=== PATIENT | male | born 1985 | race Caucasian/White ===

== ENCOUNTER 2017-02-09 20:40 | Emergency (ER) | payer OTHER ==
[2017-02-09] MEDS ORDERED: methylPREDNISolone 125 MG* 2 ML VIAL IV ONE (20:50)
[2017-02-09] MEDS ORDERED: Famotidine IV* 10 MG/ML 2 ML (20 mg) IV SLOW PU ONE (20:50)
[2017-02-09 21:09] VITALS: BP 137/77
--- NOTE | 2017-02-09 21:09 | UC ---
Allergic Reaction HPI - HPI Summary HPI Summary: Pt presents to urgent care after being stung by a wasp. Pt state he rapidly developed itching. Pt took 75mg of Benadryl and drove self to ED. Pt states hive increased, felt like he was having difficulty breathing and his throat was tight. Pt also reports mild lightheadedness. Pt without previous allergic reaction. Pt's medications reviewed at this visit - History of Current Complaint Chief Complaint: UCAllergicReaction Stated Complaint: BEE STING,HIVES,DIZZY,SOB Time Seen by Provider: 02/09/17 20:42 Hx Obtained From: Patient Onset/Duration: Sudden Onset Severity Initially: Moderate Severity Currently: Moderate Location: Diffuse Character: Swelling, Pruritus, Hives Aggrevating Factor(s): Nothing Alleviating Factor(s): Antihistamines Associated Signs And Symptoms: Positive: Difficulty Breathing, Hoarseness, Lightheadedness, Nausea - Related Hx Possible Reaction To: Insect - Allergies/Home Medications Allergies/Adverse Reactions: Allergies Allergy/AdvReac Type Severity Reaction Status Date / Time No Known Allergies Allergy Verified 02/09/17 20:59 Home Medications: Home Medications NK [No Home Medications Reported] 02/09/17 [History Confirmed 02/09/17] PMH/Surg Hx/FS Hx/Imm Hx Previously Healthy: Yes - Surgical History Surgical History: None - Social History Occupation: Employed Full-time Lives: Alone Alcohol Use: Rare Substance Use Type: None Smoking Status (MU): Never Smoked Tobacco Review of Systems Constitutional: Negative Skin: Rash Eyes: Negative ENT: Negative, Other - hoarseness Respiratory: Shortness Of Breath Cardiovascular: Negative Gastrointestinal: Nausea Genitourinary: Negative Motor: Negative Neurovascular: Negative Musculoskeletal: Negative Neurological: Negative Psychological: Negative All Other Systems Reviewed And Are Negative: Yes Physical Exam Triage Information Reviewed: Yes Appearance: Ill-Appearing Vital Signs: Initial Vital Signs Temp 98 F 02/09/17 21:01 Pulse 72 02/09/17 21:01 Resp 16 02/09/17 21:01 BP 137/77 02/09/17 21:01 Pulse Ox 100 02/09/17 21:01 Vital Signs Reviewed: Yes Eyes: Positive: Conjunctiva Inflamed ENT: Positive: Muffled/hoarse voice, Other: - no intra-oral edema, uvula midline minimal hoarseness Neck exam: Normal Neck: Positive: Supple, Nontender, No Lymphadenopathy Respiratory Exam: Normal Respiratory: Positive: Chest non-tender, Lungs clear, Normal breath sounds, No respiratory distress, No accessory muscle use, Other: - pt with increased RR upon arrival Cardiovascular Exam: Normal Cardiovascular: Positive: RRR, No Murmur, Pulses Normal, Brisk Capillary Refill Abdominal Exam: Normal Abdomen Description: Positive: Nontender, No Organomegaly, Soft Bowel Sounds: Positive: Present Musculoskeletal Exam: Normal Musculoskeletal: Positive: Strength Intact Neurological Exam: Normal Neurological: Positive: Alert Psychological Exam: Normal Skin: Positive: rashes - Pt with diffuse urticaria Re-Evaluation - Re-Evaluation First Eval Change: Improved - Pt with marked improvement following medications reports feeling better no sob, diaphoresis or throat tightness rash resolving pt reports feeling much better will transfer pt for 3 hours monitoring following epi Pt comfortable and in agreement with plan Allergic Reaction Course/Dx - Course Course Of Treatment: Pt presents with rapid devleop of hives, sob, and hoarseness following wasp sting. Pt aggressively treated with solumedrol, IM ep , pepcid. Pt self medicated with benadryl. IV placed. close monitoring - Differential Dx/Diagnosis Provider Diagnoses: acute allergic reaction. early anaphylaxis Discharge - Discharge Plan Condition: Stable Disposition: TRANS HIGHER LVL OF CARE FAC Patient Education Materials: Anaphylaxis (GEN) Referrals: No Primary Care Phys,NOPCP [Primary Care Provider] -
[2017-02-09] MEDS ORDERED: EPINEPHrine AMP 1 MG/ML SUBCUT ONE (21:16)
== END 2017-02-09 21:30 | disposition short-term general hospital (02) ==
LOC: UCEAST 20:40
DX: T63.461A Toxic effect of venom of wasps, accidental (unintentional), initial encounter (principal); T78.2XXA Anaphylactic shock, unspecified, initial encounter; L50.9 Urticaria, unspecified; X58.XXXA Exposure to other specified factors, initial encounter
CPT/HCPCS: 99213; G0463; J0171; J2930

== ENCOUNTER 2017-02-09 21:57 | Emergency (ER) | payer OTHER ==
[2017-02-09] MEDS ORDERED: predniSONE TAB* 20 MG PO ONE (22:50)
[2017-02-09] MEDS ORDERED: Famotidine TAB* 20 MG PO ONE (22:51)
--- NOTE | 2017-02-09 22:58 | ED ---
Lazarus Dominguez Nikita, scribed for Abimael Garrett MD on 02/09/17 at 2214 . Allergic Reaction/Systemic - HPI Summary HPI Summary: This patient is a 32 year old M BIBA from [facility] to [facility] with a chief complaint of an allergic reaction since earlier today. Pt was stung by a bee at 1999. Patient reports diffuse pruritic hives, SOB, tachypnea, dizziness, fatigue (due to medications). Pt was given 1mg Epi IM, Solu medrol and pepcid IV at [facility]. 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 The CC is described as hurts like hell. Symptoms aggravated by nothing. Symptoms alleviated by medications given. - History of Current Complaint Chief Complaint: EDAllergicReaction Time Seen by Provider: 02/09/17 22:06 Hx Obtained From: Patient Onset/Duration: Sudden Onset, Started hours ago - 1999 Severity Initially: Severe Character: Pain, Hives - Diffuse pruritic hives Aggravating Factor(s): Nothing Alleviating Factor(s): Other - 1mg Epi IM, Solu medrol and pepcid IV at [facility]. 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 - Allergies/Home Medications Allergies/Adverse Reactions: Allergies Allergy/AdvReac Type Severity Reaction Status Date / Time No Known Allergies Allergy Verified 02/09/17 20:59 PMH/Surg Hx/FS Hx/Imm Hx Endocrine/Hematology History: Denies: Hx Diabetes Cardiovascular History: Denies: Hx Coronary Artery Disease, Hx Hypertension Infectious Disease History: Denies: Hx Clostridium Difficile, Hx Hepatitis, Hx Human Immunodeficiency Virus (HIV), Hx of Known/Suspected MRSA, Hx Shingles, Hx Tuberculosis, Hx Known/ Suspected VRE, Hx Known/Suspected VRSA, History Other Infectious Disease - Family History Known Family History: Positive: Cardiac Disease, Hypertension, Diabetes - DM2 - Social History Alcohol Use: Daily Substance Use Type: Reports: None Smoking Status (MU): Never Smoked Tobacco Review of Systems Positive: Fatigue - due to medications Positive: Other - Tachypnea Positive: Shortness Of Breath Positive: Other - diffuse pruritic hives Neurological: Other - Dizziness All Other Systems Reviewed And Are Negative: Yes Physical Exam - Summary Physical Exam Summary: General: well-appearing, no pain distress Skin: warm, color reflects adequate perfusion, dry Head: normal Eyes: EOMI, JH ENT: normal Neck: supple, nontender Respiratory: CTA, breath sounds present Cardiovascular: RRR Abdomen: soft, nontender Bowel: present Musculoskeletal: normal, strength/ROM intact Neurological: normal, sensory/motor intact, A&O x3 Psychological: affect/mood appropriate Triage Information Reviewed: Yes Vital Signs On Initial Exam: Initial Vitals BP 141/67 02/09/17 22:05 Vital Signs Reviewed: Yes Diagnostics - Vital Signs Vital Signs Temp Pulse Resp BP Pulse Ox 02/09/17 22:10 98 F 81 24 141/67 99 02/09/17 22:06 81 22 100 02/09/17 22:05 141/67 - Laboratory Lab Statement: Any lab studies that have been ordered have been reviewed, and results considered in the medical decision making process. Allergic Reaction Course/Dx - Course Course Of Treatment: WELL IN ED. NO CRITICAL CARE TIME. - Diagnoses Provider Diagnoses: Allergic reaction to bee sting Discharge - Discharge Plan Condition: Stable Disposition: HOME Prescriptions: Epinephrine [Epipen 2-Scout] 0.3 mg IM ONCE PRN #1 inj PRN Reason: Allergy Symptoms Famotidine TAB* [Pepcid 20 MG TAB*] 20 mg PO BID PRN #8 tab PRN Reason: Allergy Symptoms predniSONE TAB* [Deltasone TAB*] 40 mg PO DAILY PRN #8 tab PRN Reason: Allergy Symptoms Patient Education Materials: General Allergic Reaction (ED) Referrals: [facility] [place] PH[facility]IAN REFERRAL [Outside] Additional Instructions: FOLLOW UP WITH YOUR DOCTOR. TAKE BENADRYL 50MG EVERY 6 HOURS NEEDED. TAKE PEPCID 20MG TWICE A DAY NEEDED. TAKE PREDNISONE DIRECTED NEEDED. USE THE EPIPEN DIRECTED NEEDED. RETURN TO THE EMERGENCY DEPARTMENT FOR ANY WORSENING OF YOUR CONDITION; DIFFICULTY BREATHING OR SWALLOWING OR QUESTIONS OR CONCERNS. The documentation as recorded by the Lazarus alatorre Nikita accurately reflects the service I personally performed and the decisions made by , Abimael Garrett MD.
[2017-02-10 01:37] VITALS: BP 111/77
== END 2017-02-10 01:41 | disposition home or self-care (01) ==
LOC: ED 21:57
DX: T63.441A Toxic effect of venom of bees, accidental (unintentional), initial encounter (principal); Y92.9 Unspecified place or not applicable
CPT/HCPCS: 99283; A9270-GY; J7512

== ENCOUNTER 2018-05-26 16:30 | Emergency (ER) | payer SELFPAY ==
[2018-05-26 16:51] VITALS: BP 129/72
--- NOTE | 2018-05-26 17:13 | ED ---
Throat Pain/Nasal Congestion - HPI Summary HPI Summary: 33 yr old male with the complaint of sore throat. Onset of symptoms yesterday with sore throat, fever. He also has nasal congestion, cough. Denies NVD. Denies rash. His symptoms are moderate. - History of Current Complaint Chief Complaint: UCGeneralIllness Time Seen by Provider: 05/26/18 16:49 - Allergies/Home Medications Allergies/Adverse Reactions: Allergies Allergy/AdvReac Type Severity Reaction Status Date / Time No Known Allergies Allergy Verified 02/09/17 20:59 Home Medications: Home Medications Dm/Acetaminophen/Doxylamine [Nighttime Cold-Flu Rlf Sftgl] 2 each PO ONCE [History Confirmed 05/26/18] PMH/Surg Hx/FS Hx/Imm Hx Endocrine/Hematology History: Denies: Hx Diabetes Cardiovascular History: Denies: Hx Coronary Artery Disease, Hx Hypertension Infectious Disease History: No Infectious Disease History: Denies: Hx Clostridium Difficile, Hx Hepatitis, Hx Human Immunodeficiency Virus (HIV), Hx of Known/Suspected MRSA, Hx Shingles, Hx Tuberculosis, Hx Known/ Suspected VRE, Hx Known/Suspected VRSA, History Other Infectious Disease, Traveled Outside the [place] in Last 30 Days - Family History Known Family History: Positive: Cardiac Disease, Hypertension, Diabetes - DM2 - Social History Alcohol Use: Weekly Substance Use Type: Reports: None Smoking Status (MU): Never Smoked Tobacco Review of Systems Positive: Fever Positive: Sore Throat, Nasal Discharge Positive: Cough All Other Systems Reviewed And Are Negative: Yes Physical Exam Triage Information Reviewed: Yes Vital Signs On Initial Exam: Initial Vitals Temp Pulse Resp BP Pulse Ox 97.8 F 74 16 129/72 99 05/26/18 16:46 05/26/18 16:46 05/26/18 16:46 05/26/18 16:46 05/26/18 16:46 Vital Signs Reviewed: Yes Appearance: Positive: Well-Appearing, No Pain Distress Skin: Positive: Warm, Skin Color Reflects Adequate Perfusion Head/Face: Positive: Normal Head/Face Inspection Eyes: Positive: EOMI ENT: Positive: Pharyngeal erythema, Nasal congestion, TMs normal, Uvula midline. Negative: Hoarse voice Neck: Positive: Nontender Respiratory/Lung Sounds: Positive: Clear to Auscultation, Breath Sounds Present Cardiovascular: Positive: RRR. Negative: Murmur Abdomen Description: Positive: Nontender Musculoskeletal: Positive: Strength/ROM Intact Neurological: Positive: Sensory/Motor Intact, Alert, Oriented to Person Place, Time, CN Intact II-III Psychiatric: Positive: Normal - [place] Coma Scale Best Eye Response: 4 - Spontaneous Best Motor Response: 6 - Obeys Commands Best Verbal Response: 5 - Oriented Coma Scale Total: 15 Diagnostics - Vital Signs Vital Signs Temp Pulse Resp BP Pulse Ox 05/26/18 16:46 97.8 F 74 16 129/72 99 - Laboratory Lab Results: Lab Results 05/26/18 Range/Units 16:53 Group A Strep Rapid Negative (Negative) Lab Statement: Any lab studies that have been ordered have been reviewed, and results considered in the medical decision making process. EENT Course/Dx - Course Course Of Treatment: 33 yr old with URI. DC home. Stable condition. - Diagnoses Provider Diagnoses: Upper respiratory infection, Pharyngitis Discharge - Sign-Out/Discharge Documenting (check all that apply): Patient Departure All imaging exams completed and their final reports reviewed: No Studies - Discharge Plan Condition: Good Disposition: HOME Patient Education Materials: Upper Respiratory Infection (ED) Referrals: No Primary Care Phys,NOPCP [Primary Care Provider] - [facility] – [place] PHYSICIAN REFERRAL [Outside] - 2 Days - Billing Disposition and Condition Condition: GOOD Disposition: Home
== END 2018-05-26 17:18 | disposition home or self-care (01) ==
LOC: UCCORT 16:30
DX: J06.9 Acute upper respiratory infection, unspecified (principal); J02.9 Acute pharyngitis, unspecified
CPT/HCPCS: 87651; 99211; G0463

== ENCOUNTER 2019-03-16 16:22 | Emergency (ER) | payer SELFPAY ==
[2019-03-16 16:30] VITALS: BP 143/80
--- NOTE | 2019-03-16 16:43 | UC ---
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 Negative: Vision Changes, Anxiety, Recent Stress, Headaches, Numbness, Tingling, Weakness, Dizziness, SOB , Swelling, Syncope, Fever, Diaphoresis, Nausea/Vomiting, Palpitations, Cough, Hemoptysis, Back Pain, Abdominal Pain, Calf Pain/Swelling - Allergy/Home Medications Allergies/Adverse Reactions: Allergies Allergy/AdvReac Type Severity Reaction Status Date / Time No Known Allergies Allergy Verified 03/16/19 16:30 Home Medications: Home Medications Aspirin 325 mg PO DAILY PRN 03/16/19 [History Confirmed 03/16/19] PMH/Surg Hx/FS Hx/Imm Hx Previously Healthy: Yes - Surgical History Surgical History: None - Family History Known Family History: Positive: Cardiac Disease - not at a young age, Hypertension, Diabetes - DM2 - Social History Alcohol Use: Occasionally Substance Use Type: Excessive Caffeine Substance Use Comment - Amount & Last Used: 3 years of marijuana use Smoking Status (MU): Never Smoked Tobacco Review of Systems All Other Systems Reviewed And Are Negative: Yes Constitutional: Positive: Negative Skin: Positive: Negative Eyes: Positive: Negative ENT: Positive: Negative Respiratory: Positive: Negative Cardiovascular: Positive: Chest Pain Gastrointestinal: Positive: Negative Genitourinary: Positive: Negative Motor: Positive: Negative Neurovascular: Positive: Negative Musculoskeletal: Positive: Negative Neurological: Positive: Negative Psychological: Positive: Negative Is Patient Immunocompromised?: Yes Physical Exam Triage Information Reviewed: Yes Appearance: Well-Appearing, No Pain Distress, Well-Nourished Vital Signs: Initial Vital Signs Temp 97.8 F 03/16/19 16:24 Pulse 68 03/16/19 16:24 Resp 15 03/16/19 16:24 BP 143/80 03/16/19 16:24 Pulse Ox 100 03/16/19 16:24 Vital Signs Reviewed: Yes Eyes: Positive: Conjunctiva Clear ENT: Positive: Hearing grossly normal, Uvula midline. Negative: Nasal congestion, Nasal drainage, Trismus, Muffled voice, Hoarse voice Neck: Positive: Supple, Nontender, No Lymphadenopathy Respiratory: Positive: Chest non-tender, Lungs clear, Normal breath sounds, No respiratory distress Cardiovascular: Positive: RRR, No Murmur Abdomen Description: Positive: Nontender, No Organomegaly, Soft. Negative: CVA Tenderness (R), CVA Tenderness (L) Musculoskeletal: Positive: ROM Intact, No Edema Neurological: Positive: Alert Psychological Exam: Normal Skin Exam: Normal Diagnostics - EKG Cardiac Rate: NL Cardiac Rhythm: Sinus: Normal Ectopy: None ST Segment: Normal - Clinical Impression Provider Diagnosis: Right-sided chest pain Discharge ED - Sign-Out/Discharge Documenting (check all that apply): Patient Departure All imaging exams completed and their final reports reviewed: Yes - Discharge Plan Condition: Stable Disposition: HOME Patient Education Materials: Noncardiac Chest Pain (ED) Referrals: [facility] [place] [facility] REFERRAL [Outside] - 2 Weeks (recheck BP in 2-12 weeks) Additional Instructions: These are the reasons I don't think you have a PE Your age and overall excellent health Your heart rate is <100 Your Oxygen saturation is 100% you have no unilateral leg swelling you are not coughing up blood you have had no recent surgery or trauma you have had no prior hx of PE or DVT no hormone use or smoking You EKG is normal You CXR is normal I suggest you try heat I suggest you take aleve 1 or 2 with food twice daily as needed for pain Your BP is a little higher than we like to see. You should get it rechecked in 2-12 weeks - Billing Disposition and Condition Condition: STABLE Disposition: Home
== END 2019-03-16 17:44 | disposition home or self-care (01) ==
LOC: UCCORT 16:22
DX: R07.89 Other chest pain (principal); Z79.82 Long term (current) use of aspirin
CPT/HCPCS: 71046; 93005; 99211; G0463